=== PATIENT | female | born 1980 | race African-American/Black ===

== ENCOUNTER 2021-03-15 12:08 | Emergency (ER) | payer MEDICAID ==
[~2021-03-15] VITALS: Ht 167.6 cm; Wt 73.0 kg
[2021-03-15] MEDS ORDERED: MORPHINE SULFATE 4 MG/ML CPJ (NOT FOR IM USE) IV STA (12:41)
[2021-03-15] MEDS ORDERED: ONDANSETRON HCL 4MG/2ML INJ IV STA (12:41)
[2021-03-15 13:21] LABS: CLARITY URINE CLOUDY (CLEAR); COLOR URINE YELLOW (YELLOW); KETONES URINE 1+ (NEGATIVE); LEUKOCYTE ESTERASE URINE 1+ (NEGATIVE); NITRITE URINE NEGATIVE (NEGATIVE); OCCULT BLOOD URINE 3+ (NEGATIVE); PH URINE 5.5 (4.5-8.0); PROTEIN URINE 1+ (NEGATIVE); SPECIFIC GRAVITY URINE 1.024 (1.005-1.030); UROBILINOGEN URINE 0.2 E.U./dL (0.2-1.0)
[2021-03-15 13:32] LABS: BASOPHILS % 0.9 % (0.0-2.0); EOSINOPHILS % 1.4 % (0.0-5.0); HEMATOCRIT. 33.8 % (36.0-48.0); HEMOGLOBIN. 11.2 g/dL (12.0-16.0); LYMPHOCYTES % 15.8 % (20.0-50.0); MEAN CORPUSCULAR VOLUME 69.8 fL (81.0-99.0); MEAN PLATELET VOLUME 8.4 fl (7.4-10.4); NEUTROPHILS % 73.9 % (40.0-76.0); PLATELET 227 x1000/uL (130-400); RED BLOOD CELL COUNT 4.85 mill/uL (4.2-5.4); RED CELL DISTRIBUTION WIDTH 17.6 % (11.6-14.6)
[2021-03-15 13:40] LABS: CHLORIDE 108 mEq/L (98-107)
[2021-03-15 13:42] LABS: INR 1.1; PROTHROMBIN TIME 11.4 sec (9.6-11.0)
[2021-03-15 13:54] LABS: PLATELET ESTIMATE NORMAL
[2021-03-15] MEDS ORDERED: KETOROLAC 30MG/ML VIAL IV ONE (16:00)
[2021-03-15] MEDS ORDERED: CIPR-263 MT (16:01)
[2021-03-15] MEDS ORDERED: TAMS-11 MT (16:01)
[2021-03-15 17:04] VITALS: BP 116/77
== END 2021-03-15 17:06 | disposition home or self-care (01) ==
LOC: EDSEX 12:08 → ER 12:08
DX: N20.0 Calculus of kidney (principal); Z88.3 Allergy status to other anti-infective agents
CPT/HCPCS: 36415; 74177; 80053; 81003; 81025; 83690; 85025; 85610; 96374; 96375; 99285; J1885; J2270; J2405; Z7610